=== PATIENT | female | born 1960 | race Caucasian/White ===

== ENCOUNTER → 2016-06-28 | Outpatient (CLI) | payer BC ==
--- NOTE | ~2016-06-28 | US5 ---
[facility] A Service of [facility] RADIOLOGY TEXT RESULTS PATIENT: LARRY GONZALEZ LOCATION: [facility] : 56 UNIT #: [id number] AGE: [address]: Joelle Guajardo MD SEX: F ORDER DR: [id number] [place] [id number], [place] [address] [id number] O MR#: [id number] Acc #: [id number] NAME: LARRY GONZALEZ : 1960 SEX: F STUDY DATE/TIME: 06/28/2016 10:28 UNIT: [facility] ROOM: STUDY DESCRIPTION: US Abdominal Complete Attending Physician: Joelle Guajardo M.D. Referring Physician: Joelle Guajardo M.D. Ordering Physician: Joelle Guajardo M.D. Primary Care Physician: Joelle Guajardo M.D. MEDICAL IMAGING REPORT This report is preliminary unless electronic signature is present EXAM Abdominal ultrasound INDICATIONS Elevated liver enzyme levels. PROCEDURE Jose-scale and Doppler imaging of the abdomen COMPARISON None. FINDINGS Visualized portions of pancreas are unremarkable. Submitted images of the abdominal aorta and inferior vena cava are unremarkable. Unremarkable gallbladder. The liver measures 14.6 cm. Common duct measures 5 mm. Right kidney measures 11.7 cm. The liver is isoechoic to the right kidney. Left kidney measures 12.3 cm. No hydronephrosis. There is a 7 mm hyperechoic lesion in the left kidney probably representing a small angiomyolipoma or nonshadowing stone. Spleen measures 11 cm. Suggestion of a slightly hyperechoic mass in the spleen measuring up to 7 cm. IMPRESSION 1. No specific finding to explain the patient's elevated liver enzyme levels. No acute findings. 2. 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 3. Possible slightly hyperechoic mass in the spleen measuring up to 7 cm. This would be better evaluated with abdominal MRI or multiphase CT. Dictated by... Rik Haq M.D. [facility] A Service [facility] RADIOLOGY TEXT RESULTS PATIENT: LARRY GONZALEZ LOCATION: [facility] : 56 UNIT #: [id number] AGE: [address]: Joelle Guajardo MD SEX: F ORDER DR: THIS IS AN ELECTRONICALLY VERIFIED REPORT Rik Haq M.D. at 06/28/2016 5:05 PM Brandi TD: 06/28/2016 14:21 JOB #: [id number] MEDICAL IMAGING REPORT Page 1 of 1 COPY
== END | disposition home or self-care (01) ==
LOC: CGUS 07:49
DX: R74.8 Abnormal levels of other serum enzymes (principal)
CPT/HCPCS: 76700

== ENCOUNTER → 2016-07-16 | Outpatient (CLI) | payer BC ==
--- NOTE | ~2016-07-16 | CT3 ---
[facility] A Service of [facility] RADIOLOGY TEXT RESULTS PATIENT: LARRY GONZALEZ [facility] : 56 UNIT #: [id number] AGE: [address]: Joelle Guajardo MD SEX: F ORDER DR: [id number] [facility] [address] [place], [place] [address] [id number] O MR#: [id number] Acc #: [id number] NAME: LARRY GONZALEZ : 1960 SEX: F STUDY DATE/TIME: 07/16/2016 11:27 UNIT: [facility] ROOM: STUDY DESCRIPTION: CT Abd and Pelv WWo Cont Attending Physician: Joelle Guajardo M.D. Referring Physician: Joelle Guajardo M.D. Ordering Physician: Physician Non-Staff Primary Care Physician: Joelle Guajardo M.D. MEDICAL IMAGING REPORT This report is preliminary unless electronic signature is present EXAM CT of the abdomen and pelvis without and with contrast. HISTORY Recent elevation of liver enzymes on statins, now presents with a liver mass seen incidentally on ultrasound. TECHNIQUE Axial imaging of the abdomen was performed pre and post contrast media. Postcontrast imaging was performed in the arterial and venous phases. This CT exam was performed with one or more of the following radiation dose reduction techniques: automatic exposure control, adjustment of mA and/or kV according to patient size, and iterative reconstruction. FINDINGS Scans through the lung bases are normal. Precontrast imaging of the liver shows a lobulation over the lower aspect of the spleen that is isodense with the spleen. 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 An incidental 1 cm to 2 cm nonobstructing stone is seen in the lower pole yanna. There is diverticulosis. Postop changes of prior hysterectomy. Contrast media was subsequently injected and the patient was scanned in the arterial and venous phases. The examination shows normal enhancement of the liver. There is a thin rim of hypervascularity in the margin of the nodular density in the spleen that measures approximately 7.5 cm. It is probably best appreciated on the early arterial phase images. It is isointense with the spleen on remaining sequences. Postcontrast imaging of the kidneys shows no additional pathology. Note is made of a very small fat-filled diaphragmatic hernia on the left. [facility] A Service of [facility] RADIOLOGY TEXT RESULTS PATIENT: LARRY GONZALEZ LOCATION: [facility] : 56 UNIT #: [id number] AGE: [address]: Joelle Guajardo MD SEX: F ORDER DR: CONCLUSION 1. A 7.5 cm slightly hypervascular lesion arising from the inferior aspect of the spleen. This is isodense in the later phases. It appears slightly hyperdense on the ultrasound and is actually more easily identified by ultrasound. The appearance is most likely benign. The differential should include a splenic hamartoma versus possible hemangioma. I would suggest that this have a short interim followup scan in about 3-6 months to ensure no additional change in size. 2. Incidental 1-2 mm lower pole right renal stone. Left renal lipoma. 3. Postop changes of prior hysterectomy. Dictated by... Abdirahman Fischer M.D. THIS IS AN ELECTRONICALLY VERIFIED REPORT Abdirahman Fischer M.D. at 07/18/2016 2:19 PM BRAXTON/lea TD: 07/16/2016 21:26 JOB #: [id number] MEDICAL IMAGING REPORT Page 1 of 1 COPY
[2016-07-16 12:35] LABS: POC - CREATININE 0.69 mg/dL (0.44-1.03); POC - GFR >60.0 mL/min (>60)
== END | disposition home or self-care (01) ==
LOC: CCAT 10:56
PROVIDERS: Internal Medicine
DX: D73.4 Cyst of spleen (principal); Z90.710 Acquired absence of both cervix and uterus
CPT/HCPCS: 74178; 82565; Q9967

== ENCOUNTER → 2016-10-11 | Outpatient (CLI) | payer BC ==
[2016-10-11 07:31] LABS: URINE APPEARANCE CLEAR; URINE BILIRUBIN NEG (NEG); URINE BLOOD NEG (NEG); URINE COLOR YELLOW; URINE GLUCOSE NEG (NEG); URINE KETONE NEG (NEG); URINE LEUKOCYTE ESTERASE NEG (NEG); URINE NITRATE NEG (NEG); URINE PROTEIN NEG (NEG); URINE SPECIFIC GRAVITY 1.006 (1.003-1.035); URINE UROBILINOGEN 0.2 MG/DL (NEG)
[2016-10-11 07:34] LABS: CULTURE INDICATED? NO; URINE SOURCE CLEAN CATCH
[2016-10-11 08:38] LABS: ALBUMIN SERUM 4.3 g/dL (3.5-5.0); BILIRUBIN,TOTAL 0.6 mg/dL (0.2-2.0); BUN/CREATININE RATIO 17.77; CALCIUM SERUM 9.6 mg/dL (8.4-10.2); CREATININE SERUM 0.9 mg/dL (0.6-1.4); POTASSIUM 4.2 mmol/L (3.5-5.1); PROTEIN TOTAL SERUM 6.9 g/dL (6.0-8.3)
[2016-10-15 08:33] LABS: MICROALB UR (PNL) 0.1 mg/dL (***)
== END | disposition home or self-care (01) ==
LOC: CLAB 07:11
PROVIDERS: Internal Medicine
DX: E11.9 Type 2 diabetes mellitus without complications (principal)
CPT/HCPCS: 36415; 80053; 81003; 82043; 82570